=== PATIENT | female | born 1940 | race Caucasian/White ===

== ENCOUNTER 2016-09-10 20:16 | Emergency (ER) | payer MEDICARE ==
[~2016-09-10] VITALS: Ht 152.4 cm; Wt 96.0 kg
[~2016-09-10 20:16] MED LIST: ALPR0.5T99 PO; ASPI81 PO; BENI40TA33 PO; CELE10TA9 PO; LEVO88TA21 PO; METO50TA PO; OMEG1CAP53 PO; OS-CTAB3 PO; RANI150 PO; ZOCO40TA PO
[2016-09-10 20:32] VITALS: BP 187/111; PULSE 97; RESP 18; TEMP 98.2; O2SAT 97
[2016-09-10 20:45] VITALS: BP 196/110; PULSE 81; RESP 18; TEMP 98.2; O2SAT 97
[2016-09-10] MEDS ORDERED: ASPI81CH CHEW (20:55)
[2016-09-10] MEDS ORDERED: SYNT88TA PO (20:55)
[2016-09-10] MEDS ORDERED: BENI40TA5 PO (20:55)
[2016-09-10] MEDS ORDERED: ALPR0.5T3 PO (20:55)
[2016-09-10] MEDS ORDERED: ATOR20TA15 PO (20:55)
[2016-09-10] MEDS ORDERED: VITA100032 (20:55)
[2016-09-10] MEDS ORDERED: CALC1TAB16 PO (20:55)
[2016-09-10] MEDS ORDERED: METO50TA PO (20:55)
[2016-09-10] MEDS ORDERED: CITA10TA4 PO (20:57)
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
[2016-09-10] MEDS ORDERED: cloNIDine HCL 0.1 MG TAB PO ONE ×2 (21:00→22:30)
[2016-09-10 21:34] LABS: AUTOMATED NEUTROPHIL # 5.4 TH/MM3 (1.8-7.7); BASOPHIL % 0.5 % (0.0-2.0); EOSINOPHIL # 0.1 TH/MM3 (0-0.4); EOSINOPHIL % 1.7 % (0.0-4.0); HEMATOCRIT 45.6 % (35.0-46.0); HEMO FLAGS DIFF FINAL; LYMPH % 27.9 % (9.0-44.0); LYMPHOCYTE # 2.4 TH/MM3 (1.0-4.8); MEAN CELL VOLUME 82.7 FL (80.0-100.0); MEAN CORPUSCULAR HEMOGLOBIN 27.3 PG (27.0-34.0); MONO % 6.8 % (0.0-8.0); NEUT % 63.1 % (16.0-70.0); PLATELET COUNT 324 TH/MM3 (150-450); RED BLOOD COUNT 5.51 MIL/MM3 (4.00-5.30); RED CELL DISTRIBUTION WIDTH 13.8 % (11.6-17.2); WHITE BLOOD COUNT 8.5 TH/MM3 (4.0-11.0)
[2016-09-10 21:44] LABS: POTASSIUM 3.3 MEQ/L (3.5-5.1)
[2016-09-10 21:47] LABS: BICARBONATE 22.1 MEQ/L (21.0-32.0)
[2016-09-10 21:52] VITALS: BP 199/84; PULSE 81; RESP 18; O2SAT 97
[2016-09-10] MEDS ORDERED: POTASSIUM CHLORIDE 20 MEQ CONTROLLED RELEASE TAB PO ONE (22:00)
[2016-09-10 22:44] VITALS: BP 190/82; PULSE 81; RESP 18; O2SAT 96
[2016-09-10 23:04] VITALS: BP 174/73; PULSE 77; RESP 18; O2SAT 97
== END 2016-09-10 23:29 | disposition home or self-care (01) ==
LOC: PHED 20:16
DX: I10 Essential (primary) hypertension (principal); E03.9 Hypothyroidism, unspecified
CPT/HCPCS: 80048; 85025; 99284